=== PATIENT | female | born 1945 | race Caucasian/White ===

== ENCOUNTER → 2017-05-04 | Day surgery (SDC) | payer MEDICARE ==
[~2017-05-04] MED LIST: ALLOPURINOL300 MG PO; AMARYL PO; AMLODIPINE BESY10 MG PO; ASPIRIN81 M2 PO; FISH OIL 1,0001 EAC4; HARD NAILS2500 MCG PO; LISINOPRIL-HCTZ1 T15 PO; LOVAZA1 G PO; METFORMIN PO; NAPROSYN500 MG PO; NIACIN500 M1 PO; OSTEO BI-FLEX1 EAC1 PO
--- NOTE | ~2017-05-04 | OR ---
Unit #: [id number] #: [id number] Patient: IZABELLA CONNOR [id number] [address] [place], [place] [address] [id number] MR#: [id number] NAME: IZABELLA CONNOR ROOM: Date of Procedure: 05/04/2017 Admission Date: 05/04/2017 Surgeon: Emiliano Grimes Jr., M.D. : 1945 Attending Physician: Emiliano Grimes Jr., M.D. Primary Care Physician: Jesu Street M.D. OPERATIVE REPORT INDICATIONS FOR PROCEDURE The patient is a 71-year-old white female, who recently presented to the office complaining of intermittent rectal bleeding for the past 1 to 2 months. She denies any significant constipation. She does have a known past history of colon polyps. She is brought in at this time after prep at home for colonoscopy. She has had no recent colonoscopy. PREOPERATIVE DIAGNOSIS Rectal bleeding etiology? POSTOPERATIVE DIAGNOSES Multiple internal hemorrhoids, which were not actively bleeding today and small adenomatous polyp approximately 1 to 2 mm in diameter in the area of the ascending colon near the cecum, also noted was diverticulosis of the left colon. ANESTHESIA MAC anesthesia. PROCEDURES PERFORMED Flexible colonoscopy to the distal ileum with biopsy of a small polyp of the ascending colon. DESCRIPTION OF PROCEDURE The patient was positioned in Santiago position with left side down. After being given MAC anesthesia, digital rectal examination was performed, which revealed no palpable mass or tenderness. No blood or stool in the rectal ampulla. The Olympus colonoscope was advanced into the anal canal up the rectum and retroflexed down to the area of the anorectal region. There was no evidence of any fissures. There were multiple large dilated somewhat excoriated internal hemorrhoids without active bleeding. The scope was then straightened and advanced up in the rectosigmoid, in the sigmoid and descending colon areas, where there were multiple diverticula into the area of the splenic flexure, around the splenic flexure and the transverse colon, around hepatic flexure and ascending colon, down in the area of the cecum. The light from the tip of the scope could be seen transilluminating through right lower quadrant abdominal wall area. The scope was advanced up the distal ileum approximately 10 to 12 inches. There was no evidence of any ileitis or inflammatory bowel disease. The scope was brought back to the area of the cecum and to the ascending colon just distal to the cecum, there was a small 1 to 2 mm adenomatous polyp, Unit #: [id number] #: [id number] Patient: IZABELLA CONNOR which was removed with one bite with the cold biopsy forceps without bleeding. The scope was slowly removed. There were no tumors except for the one polyp described above. No other polyps, no cancer, no AVMs. No evidence of any colitis or acute diverticulitis. The caliber of the colon appeared normal throughout without evidence of narrowing or obstruction. There was pandiverticulosis. The scope was removed. The patient tolerated the procedure well and discharged in satisfactory condition. Dictated by... Emiliano Grimes Jr., M.Patricia. STACEY/randee TD: 05/04/2017 14:22 JOB #: [id number] OPERATIVE REPORT Page 1 of 1 X Emiliano Grimes MD X PROCEDURE OPERATIVE NOTE
[2017-05-04 13:39] LABS: BASOPHIL# 0.1 X10e3 (0-0.3); BASOPHIL% 1.3 % (0-2.5); EOSINOPHIL# 0.2 X10e3 (0-0.7); EOSINOPHIL% 2.5 % (0.0-7.0); HEMATOCRIT 36.9 % (35.0-45.0); HEMOGLOBIN 12.8 gm/dL (12.0-16.0); LYMPHOCYTE# 0.9 X10e3 (1.0-3.5); LYMPHOCYTE% 11.9 % (17.0-45.0); MEAN CELL VOLUME 81.5 FL (83-96); MEAN CORPUSCULAR HEMOGLOBIN 28.2 PG (28-34); MEAN CORPUSCULAR HGB CONC 34.6 g/dL (30-36); MEAN PLATELET VOLUME 8.4 FL (6.5-11.5); MONOCYTE# 0.4 X10e3 (0-1.0); MONOCYTE% 5.9 % (3.0-12.0); NEUTROPHIL# 5.6 X10e3 (1.5-7.1); NEUTROPHIL% 78.4 % (40-75); PLATELET COUNT 174 X10e3 (140-420); RED BLOOD COUNT 4.53 X10e (3.90-5.30); RED CELL DISTRIBUTION WIDTH 16.4 % (11.0-15.5); WHITE BLOOD COUNT 7.2 X10e3 (4.0-10.5)
[2017-05-04 13:41] LABS: DIFF IND NO
== END | disposition home or self-care (01) ==
LOC: COPS 11:31
PROVIDERS: Surgery
DX: D12.2 Benign neoplasm of ascending colon (principal); K64.8 Other hemorrhoids; K57.30 Diverticulosis of large intestine without perforation or abscess without bleeding; I10 Essential (primary) hypertension; E11.9 Type 2 diabetes mellitus without complications; E78.5 Hyperlipidemia, unspecified; M10.9 Gout, unspecified; M19.90 Unspecified osteoarthritis, unspecified site; Z86.73 Personal history of transient ischemic attack (TIA), and cerebral infarction without residual deficits; Z79.82 Long term (current) use of aspirin; Z79.84 Long term (current) use of oral hypoglycemic drugs; Z79.899 Other long term (current) drug therapy; Z90.710 Acquired absence of both cervix and uterus
CPT/HCPCS: 82947; 85025; 88305